=== PATIENT | female | born 1980 | race Caucasian/White ===

== ENCOUNTER 2024-08-26 11:29 | Emergency (ER) | payer OTHER | END 2024-08-26 15:38 | disposition home or self-care (01) | LOC: JP.ED 11:29 | DX: H66.91 Otitis media, unspecified, right ear (principal); I10 Essential (primary) hypertension; F17.210 Nicotine dependence, cigarettes, uncomplicated; Z91.040 Latex allergy status; Z79.899 Other long term (current) drug therapy; Z90.49 Acquired absence of other specified parts of digestive tract | CPT/HCPCS: 99283 ==